=== PATIENT | female | born 1990 | race Caucasian/White ===

== ENCOUNTER 2020-08-25 08:00 | Outpatient (CLI) | payer OTHER ==
[2020-08-26 13:35] LABS: BILIRUBIN,URINE NEGATIVE (NEGATIVE); GLUCOSE, URINE (UA) NEGATIVE (NEGATIVE); KETONES,URINE (UA) NEGATIVE (NEGATIVE); LEUKOCYTE ESTERASE, URINE NEGATIVE (NEGATIVE); NITRITE,URINE NEGATIVE (NEGATIVE); OCCULT BLOOD,URINE NEGATIVE (NEGATIVE); PROTEIN,URINE NEGATIVE (NEGATIVE); UROBILINOGEN,URINE 0.2 (NORMAL) E.U./dL (NORMAL)
[2020-08-26 13:46] LABS: BACTERIA,URINE Many /HPF (None Seen); CLARITY,URINE CLEAR (CLEAR); RBC,URINE None Seen /HPF (0-5); SQUAMOUS EPITHELIAL CELL,UR MANY Squamous (<= Few)
== END 2020-08-25 23:59 | disposition home or self-care (01) ==
LOC: LAB.R 08:00
PROVIDERS: ATTEND Advanced Practice Midwife
DX: Z32.01 Encounter for pregnancy test, result positive (principal)
CPT/HCPCS: 81001; 87086

== ENCOUNTER 2020-09-07 07:52 | Outpatient (CLI) | payer OTHER ==
[2020-09-07 09:16] LABS: BASOPHILS % (AUTO) 0.5 %; EOSINOPHILS % (AUTO) 0.7 %; HCT - HEMATOCRIT 40.7 % (37.0-47.0); HGB - HEMOGLOBIN 13.5 g/dL (12.0-16.0); LYMPHOCYTES # (AUTO) 1.5 10^3/uL (1.5-3.5); LYMPHOCYTES % (AUTO) 25.5 %; MEAN CORPUSCULAR HEMOGLOBIN 33.3 pg (27.0-31.0); MEAN CORPUSCULAR HGB CONC 33.2 g/dL (32.0-36.0); MEAN CORPUSCULAR VOLUME 100.2 fL (81.0-99.0); MEAN PLATELET VOLUME 12.5 fL (7.9-10.8); MONOCYTES # (AUTO) 0.4 10^3/uL (0.0-1.0); MONOCYTES % (AUTO) 6.6 %; NEUTROPHILS # (AUTO) 3.9 10^3/uL (1.5-6.6); NEUTROPHILS % (AUTO) 66.4 %; PLT - PLATELET COUNT 206 10^3/uL (130-450); RED BLOOD COUNT 4.06 10^6/uL (4.20-5.40); RED CELL DISTRIBUTION WIDTH 12.7 % (12.0-15.0); WHITE BLOOD COUNT 5.9 x10^3/uL (4.8-10.8)
--- NOTE | 2020-09-07 09:53 | Ultrasound Report ---
PROCEDURE: OB First Trimester INDICATIONS: +PREG TEST OUTSIDE/PRIOR DATING DATA: Last menstrual period (LMP): Unknown. First dating scan (date and location): Today. [facility] Estimated date of delivery (KAIDEN) from first dating scan: 04/06/2021. TECHNIQUE: Real-time scanning was performed of the fetus and maternal pelvic organs, with image documentation. COMPARISON: None FINDINGS: There is a single living intrauterine gestation with heart rate of 165 bpm. There is a small pe rigestational hemorrhage encompassing less than 25% of the gestational sac. Embryo: Gestational sac measures mean sac diameter of 6.0 cm corresponding to 12 weeks 1 day. Rainelle- rump length is 3.0 cm corresponding to 9 weeks 6 days. There is a yolk sac. Measurement variability in dating: +/- 4 weeks by LMP, +/- 7 days by mean sac diameter (use before 6 weeks gestation if crown-rump length not able to be measured), +/- 5 days by crown-rump length (6-12 weeks gestation). Maternal organs: Ovaries are normal in size. Within the right ovary is a anechoic cyst with a thick wall measuring 1.3 cm in greatest diameter consistent with a corpus luteal cyst. No suspicious cystic or solid masses. No free fluid. IMPRESSION: Single intrauterine gestation with heart rate of 165 bpm. Rainelle-rump length corresponding to 9 weeks 6 days with estimated date of delivery of 04/06/2021. Small perigestational hemorrhage encompassing less than 25% of the gestational sac, a common finding. Reviewed by: Leodan Arenas DO on 09/07/2020 8:52 AM ARIANNE Approved by: Leodan Arenas DO on 09/07/2020 8:52 AM [place] Station ID: [id number]
[2020-09-09 11:47] LABS: HEPATITIS B SURFACE ANTIGEN NON-REACTIVE (NON-REACTIVE); HEPATITIS C ANTIBODY NON-REACTIVE (NON-REACTIVE)
[2020-09-09 14:22] LABS: HIV AG/AB 4TH GEN NON-REACTIVE (NON-REACTIVE)
== END 2020-09-07 07:53 | disposition home or self-care (01) ==
LOC: DI 07:52
PROVIDERS: ATTEND Nurse Practitioner Obstetrics & Gynecology
DX: Z32.01 Encounter for pregnancy test, result positive (principal); O20.8 Other hemorrhage in early pregnancy; Z3A.09 9 weeks gestation of pregnancy
CPT/HCPCS: 36415; 81599; 85025; 86592; 86762; 86787; 86803; 86850; 86900; 86901; 87340; 87389

== ENCOUNTER 2020-09-08 08:00 | Outpatient (CLI) | payer OTHER ==
[2020-09-08 17:03] LABS: BASOPHILS % (AUTO) 0.5 %; EOSINOPHILS % (AUTO) 0.2 %; HGB - HEMOGLOBIN 12.8 g/dL (12.0-16.0); LYMPHOCYTES # (AUTO) 1.9 10^3/uL (1.5-3.5); LYMPHOCYTES % (AUTO) 23.3 %; MEAN CORPUSCULAR HEMOGLOBIN 33.1 pg (27.0-31.0); MEAN CORPUSCULAR HGB CONC 33.2 g/dL (32.0-36.0); MEAN CORPUSCULAR VOLUME 99.5 fL (81.0-99.0); MEAN PLATELET VOLUME 12.1 fL (7.9-10.8); MONOCYTES # (AUTO) 0.5 10^3/uL (0.0-1.0); MONOCYTES % (AUTO) 5.9 %; NEUTROPHILS # (AUTO) 5.8 10^3/uL (1.5-6.6); NEUTROPHILS % (AUTO) 69.7 %; PLT - PLATELET COUNT 204 10^3/uL (130-450); RED BLOOD COUNT 3.87 10^6/uL (4.20-5.40); RED CELL DISTRIBUTION WIDTH 12.8 % (12.0-15.0); WHITE BLOOD COUNT 8.3 x10^3/uL (4.8-10.8)
[2020-09-08 18:00] LABS: FOLATE 22.83 ng/mL (5.90 - >24.8)
== END 2020-09-08 23:59 | disposition home or self-care (01) ==
LOC: LAB 08:00
PROVIDERS: ATTEND Advanced Practice Midwife
DX: R79.89 Other specified abnormal findings of blood chemistry (principal)
CPT/HCPCS: 36415; 81599; 82607; 82746; 83021; 85014; 85018; 85025; 85041

== ENCOUNTER 2020-09-22 08:00 | Outpatient (CLI) | payer OTHER ==
[2020-09-22 21:52] LABS: TRICHOMONAS VAGINALIS DNA NEGATIVE (NEGATIVE)
== END 2020-09-22 23:59 | disposition home or self-care (01) ==
LOC: LAB.R 08:00
PROVIDERS: ATTEND Nurse Practitioner Obstetrics & Gynecology
DX: Z11.3 Encounter for screening for infections with a predominantly sexual mode of transmission (principal); Z12.4 Encounter for screening for malignant neoplasm of cervix
CPT/HCPCS: 87491; 87591; 87661

== ENCOUNTER 2020-09-30 09:48 | Outpatient (CLI) | payer OTHER | END 2020-09-30 09:49 | disposition home or self-care (01) | LOC: LAB 09:48 | PROVIDERS: ATTEND Nurse Practitioner Obstetrics & Gynecology | DX: Z36.8A Encounter for antenatal screening for other genetic defects (principal); Z84.81 Family history of carrier of genetic disease | CPT/HCPCS: 36415; 81291; 81599 ==

== ENCOUNTER 2020-10-21 13:35 | Outpatient (CLI) | payer OTHER ==
[2020-10-21 14:38] LABS: THYROID STIMULATING HORMONE 1.33 uIU/mL (0.34-5.60)
[2020-10-21 14:41] LABS: FREE T4 (FREE THYROXINE) 0.57 ng/dL (0.58-1.64)
== END 2020-10-21 13:36 | disposition home or self-care (01) ==
LOC: LAB 13:35
PROVIDERS: ATTEND Nurse Practitioner Obstetrics & Gynecology
DX: Z36.89 Encounter for other specified antenatal screening (principal); O99.891 Other specified diseases and conditions complicating pregnancy; R94.6 Abnormal results of thyroid function studies; Z36.8A Encounter for antenatal screening for other genetic defects; Z14.8 Genetic carrier of other disease
CPT/HCPCS: 36415; 81599; 82105; 84439; 84443; 86800

== ENCOUNTER 2020-11-03 14:22 | Outpatient (CLI) | payer OTHER | END 2020-11-03 14:23 | disposition home or self-care (01) | LOC: LAB.N 14:22 | PROVIDERS: ATTEND Nurse Practitioner Obstetrics & Gynecology | DX: Z36.8A Encounter for antenatal screening for other genetic defects (principal) | CPT/HCPCS: 36415; 81599; 82306; 82652; 83789; 84630 ==

== ENCOUNTER 2020-11-20 19:47 | Outpatient (CLI) | payer OTHER ==
--- NOTE | 2020-11-21 14:17 | Ultrasound Report ---
PROCEDURE: OB Detailed Eval INDICATIONS: SUPERVISION OF OUTSIDE/PRIOR DATING DATA: Last menstrual period (LMP): Unknown. LMP-based estimated date of delivery (KAIDEN): Not applicable. First dating scan (date and location): 09/07/2020. Estimated date of delivery (KAIDEN) from first dating scan: 04/06/2021. TECHNIQUE: Real-time scanning was performed of the fetus, with image documentation and biometric measurements. Endovaginal scanning: Not performed COMPARISON: 09/07/2020 FINDINGS: General: A single living intrauterine gestation is present. Presentation: Breech Placenta: Placental position is anterior, without previa. Amniotic fluid index: 16.8 cm, 73rd percentile for gestational age. Largest vertical pocket measur ed 7 cm heart rate: 149 beats per minute. Maternal cervical canal: 4.5 cm long; normal length is 2.5 cm or more. biometrics: Biparietal diameter: 4.8 cm, correlating with 20 weeks and 4 days Head circumference: 18.6 cm, correlating with 21 weeks and 0 days Abdominal circumference: 16.55 cm, correlating with 21 weeks and 4 days Femur length: 3.28 cm, correlating with 20 weeks and 2 days Estimated gestational age from initial scan: not applicable. Composite gestational age from present scan: 20 weeks and 5 days Estimated weight and percentile: 389 g which [address] the fetus within the 75th percentile based off gestational age. Measurement variability in biometric dating: +/- 10 days from 12-20 weeks gestation, +/- 2 weeks from 20-30 weeks gestation, +/- 3 weeks at 30 weeks gestation or later. Anatomic survey: Neuro: Ventricles are normal at less than 10 mm. Cisterna magna is normal at 3-11 mm. Cerebellum i s normal in size and morphology. Nuchal skin fold: Normal at less than 6 mm between 14 and 20 weeks gestational age. Face: Nose and lips, facial profile are normal. Spine: No evidence for spina bifida. Of note, the sagittal imaging of the spine was somewhat limited secondary to positioning throughout the examination. Overall this appears within normal limits . Heart: 4-chambered heart is present, with normal ventricular outflow tracts. Diaphragm: Diaphragm is intact. Stomach: Left-sided stomach is present. Kidneys: No hydronephrosis. Normal is less than 5 mm in 2nd trimester, less than 7 mm in 3rd trimester. Cord: 3 vessel cord has orthotopic insertion. Bladder: Normal in size. Extremities: All 4 extremities are visualized. IMPRESSION: 1. Single living intrauterine gestation with estimated sonographic gestational age of approximately 2 0 weeks and 5 days. This correlates with estimated date of delivery of 04/06/2021. Estimated weig ht measured approximately 389 g which places the fetus within the 75th percentile for gestational age . 2. Slightly limited evaluation of the spine secondary to positioning throughout the durat ion of this evaluation. Consider follow-up imaging. 3. Otherwise, unremarkable second trimester anatomic screening survey. Reviewed by: Abdiel Alonzo MD on 11/21/2020 1:16 PM SHIN Approved by: Abdiel Alonzo MD on 11/21/2020 1:16 PM SHIN Station ID: [id number]
== END 2020-11-20 19:48 | disposition home or self-care (01) ==
LOC: DI 19:47
PROVIDERS: ATTEND Nurse Practitioner Obstetrics & Gynecology
DX: Z34.00 Encounter for supervision of normal first pregnancy, unspecified trimester (principal); Z36.89 Encounter for other specified antenatal screening

== ENCOUNTER 2021-01-02 19:31 | Outpatient (CLI) | payer OTHER ==
[2021-01-02 20:55] LABS: HCT - HEMATOCRIT 36.9 % (37.0-47.0); HGB - HEMOGLOBIN 12.5 g/dL (12.0-16.0); MEAN CORPUSCULAR HEMOGLOBIN 34.6 pg (27.0-31.0); MEAN CORPUSCULAR HGB CONC 33.9 g/dL (32.0-36.0); MEAN CORPUSCULAR VOLUME 102.2 fL (81.0-99.0); MEAN PLATELET VOLUME 12.3 fL (7.9-10.8); RED BLOOD COUNT 3.61 10^6/uL (4.20-5.40); RED CELL DISTRIBUTION WIDTH 12.6 % (12.0-15.0); WHITE BLOOD COUNT 7.4 x10^3/uL (4.8-10.8)
[2021-01-02 21:17] LABS: THYROID STIMULATING HORMONE 1.77 uIU/mL (0.34-5.60)
[2021-01-02 21:19] LABS: FREE T4 (FREE THYROXINE) 0.64 ng/dL (0.58-1.64)
--- NOTE | 2021-01-02 22:22 | Ultrasound Report ---
PROCEDURE: Axilla INDICATIONS: Axillary lymphadenopathy TECHNIQUE: Real-time focused scanning was performed of the left axilla, with image documentation. COMPARISON: None. FINDINGS: There is no threshold enlarged or suspicious-appearing left axillary lymph node identified . There is a normal left axillary lymph node with a short axis diameter of 7 mm and no cortical thick ening with preserved fatty hilum. IMPRESSION: No left axillary lymphadenopathy demonstrated. Reviewed by: Rebel Armando MD on 01/02/2021 10:20 PM PDT Approved by: Rebel Armando MD on 01/02/2021 10:20 PM PDT Station ID: [id number]
--- NOTE | 2021-01-02 22:25 | Ultrasound Report ---
PROCEDURE: OB F/U or Repeat INDICATIONS: SUPERVISION OF OUTSIDE/PRIOR DATING DATA: First dating scan (date and location): 09/07/2020. Estimated date of delivery (KAIDEN) from first dating scan: 04/06/2021. The below data below was generated using the ultrasound generated KAIDEN of 04/06/2021 TECHNIQUE: Real-time scanning was performed of the fetus, with image documentation and biometric measurements. Endovaginal scanning: Performed COMPARISON: None. FINDINGS: General: A single living intrauterine gestation is present. Presentation: Breech Placenta: Placental position is anterior, without previa. Amniotic fluid index: 13.1 cm, 40th percentile for gestational age. Largest pocket is 6 cm heart rate: 141 beats per minute. Maternal cervical canal: Closed and greater than 4 cm long; normal length is 2.5 cm or more. anatomy: Limited anatomic survey was performed to evaluate the spine. There is no evidenc e of dysraphism. IMPRESSION: Normal appearance of the spine with no sonographic evidence of dysraphism. Single live intrauterine gestation with normal interval growth and normal DAMIEN. Reviewed by: Rebel Armando MD on 01/02/2021 10:24 PM PDT Approved by: Rebel Armando MD on 01/02/2021 10:24 PM PDT Station ID: [id number]
== END 2021-01-02 19:32 | disposition home or self-care (01) ==
LOC: DI 19:31 → LAB 19:32
PROVIDERS: ATTEND Nurse Practitioner Obstetrics & Gynecology
DX: Z34.00 Encounter for supervision of normal first pregnancy, unspecified trimester (principal); Z36.89 Encounter for other specified antenatal screening; Z36.8A Encounter for antenatal screening for other genetic defects
CPT/HCPCS: 36415; 82950; 84439; 84443; 85025; 85027

== ENCOUNTER 2021-03-09 08:00 | Outpatient (CLI) | payer OTHER | END 2021-03-09 23:59 | disposition home or self-care (01) | LOC: LAB.WC 08:00 | PROVIDERS: ATTEND Advanced Practice Midwife | DX: Z34.90 Encounter for supervision of normal pregnancy, unspecified, unspecified trimester (principal); Z36.85 Encounter for antenatal screening for Streptococcus B | CPT/HCPCS: 87797 ==

== ENCOUNTER 2021-03-09 12:34 | Outpatient (CLI) | payer OTHER ==
[2021-03-09 13:00] VITALS: BP 110/76
--- NOTE | 2021-03-12 08:45 | PROCEDURE REPORT ---
- HPI Diagnosis/Indication for NST: Other ( Tachycardia in clinic) Current EDU 04/06/21 Gestation 36 Weeks and 0 Days 2 Para 1 Vital Signs Temperature 97.9 C H 03/09/21 12:58 Heart Rate 98 03/09/21 12:58 Respiratory Rate 18 03/09/21 12:58 Blood Pressure 110/76 03/09/21 12:58 O2 Saturation 97 03/09/21 12:58 Temperature 97.9 C H 03/09/21 12:58 Heart Rate 98 03/09/21 12:58 Respiratory Rate 18 03/09/21 12:58 Blood Pressure 110/76 03/09/21 12:58 O2 Saturation 97 03/09/21 12:58 - NST Procedure NST Procedure Start Date 03/09/21 Start Time 12:45 Stop Time 14:15 Vibroacoustic Stimulation Used No Patient States Movement Yes: tachycardia in office - Results and Plan Plan: Candida is a 30 yo at 36.0 wks who was present for a regular visit. Upon auscultation, heart tones were found to be in the 170s and persisted through the visit. She was then encouraged to present to L&D for an NST NST perform date: 03/09/2021 NST read date: 03/09/2021 Baseline 145, moderate variability, accels, no decels Baseline was high on admit and resolved. Pt was given significant oral hydration Impression: NST reactive Final diagnosis: tachycardia- transient Plan: Continue with routine care
== END 2021-03-09 14:25 | disposition home or self-care (01) ==
LOC: WFO 12:34 → FBP 12:35 → WFO 14:25
PROVIDERS: ATTEND Advanced Practice Midwife
DX: O36.8330 Maternal care for abnormalities of the fetal heart rate or rhythm, third trimester, not applicable or unspecified (principal); Z3A.36 36 weeks gestation of pregnancy
CPT/HCPCS: 59025

== ENCOUNTER 2021-04-09 17:08 | Inpatient (IN) | payer OTHER ==
[2021-04-09] MEDS ORDERED: SODIUM CHLORIDE FLUSH 0.9% 10 ML SYRINGE IVP PRN (17:41)
[2021-04-09] MEDS ORDERED: CARBOPROST TROMETHAMINE 250 MCG/ML AMP IM PRN (17:41)
[2021-04-09] MEDS ORDERED: METHYLERGONOVINE 0.2 MG/ML VIAL IM PRN (17:41)
[2021-04-09] MEDS ORDERED: AMPICILLIN 2 GM in SODIUM CHLORIDE 0.9% MINIBAG 100 ML IV ONE (17:41)
[2021-04-09] MEDS ORDERED: OXYTOCIN/SODIUM CHLORIDE 500 ML IV PRN ×2 (17:41→20:02)
[2021-04-09] MEDS ORDERED: LIDOCAINE-MPF 1% 30 ML VIAL ID PRN (17:41)
[2021-04-09] MEDS ORDERED: miSOPROStoL 200 MCG TABLET BC PRN (17:41)
[2021-04-09] MEDS ORDERED: OXYTOCIN 10 UNIT/ML VIAL IM PRN (17:41)
[2021-04-09] MEDS ORDERED: TRANEXAMIC ACID IN NACL 1,000 MG/100 ML BAG IV PRN (17:41)
[2021-04-09] MEDS ORDERED: LACTATED RINGERS 1,000 ML IV SCH ×2 (18:00→21:00)
[2021-04-09] MEDS ORDERED: AMPICILLIN 1 GM in SODIUM CHLORIDE 0.9% MINIBAG 100 ML IV SCH (18:00)
[2021-04-09 19:01] LABS: HCT - HEMATOCRIT 41.6 % (37.0-47.0); HGB - HEMOGLOBIN 13.8 g/dL (12.0-16.0); MEAN CORPUSCULAR VOLUME 103.5 fL (81.0-99.0); RED BLOOD COUNT 4.02 10^6/uL (4.20-5.40); WHITE BLOOD COUNT 8.2 x10^3/uL (4.8-10.8)
[2021-04-09 19:02] LABS: MEAN CORPUSCULAR HEMOGLOBIN 34.3 pg (27.0-31.0); MEAN CORPUSCULAR HGB CONC 33.2 g/dL (32.0-36.0); PLT - PLATELET COUNT 187 10^3/uL (130-450); RED CELL DISTRIBUTION WIDTH 48.1 % (12.0-15.0)
[2021-04-09] MEDS ORDERED: ROPIVACAINE 0.2% 200 MG/100 ML BAG EP ONE (19:02)
[2021-04-09 19:03] LABS: LYMPHOCYTES % (AUTO) 24.4 %; MEAN PLATELET VOLUME 12.6 fL (7.9-10.8); NEUTROPHILS % (AUTO) 67.6 %
[2021-04-09 19:04] LABS: BASOPHILS % (AUTO) 0.4 %; EOSINOPHILS % (AUTO) 0.5 %; MONOCYTES # (AUTO) 0.6 10^3/uL (0.0-1.0); NEUTROPHILS # (AUTO) 5.6 10^3/uL (1.5-6.6)
[2021-04-09] MEDS ORDERED: ONDANSETRON 4 MG/2 ML VIAL IVP PRN (19:29)
[2021-04-09] MEDS ORDERED: ROPIVACAINE 0.2% 200 MG/100 ML BAG EP PRN (19:29)
[2021-04-09] MEDS ORDERED: NALBUPHINE 10 MG/ML AMP IVP PRN (19:29)
[2021-04-09] MEDS ORDERED: METOCLOPRAMIDE 10 MG/2 ML VIAL IVP PRN (19:29)
[2021-04-09] MEDS ORDERED: diphenhydrAMINE INJ 50 MG/ML VIAL IVP PRN (19:29)
[2021-04-09] MEDS ORDERED: NALOXONE 0.4 MG/ML VIAL IVP PRN (19:29)
[2021-04-09] MEDS ORDERED: ePHEDrine 50 MG/ML VIAL IVP PRN (19:29)
[2021-04-09] MEDS ORDERED: WITCH HAZEL/GLYCERIN 1 PAD TOP PRN (20:02)
[2021-04-09] MEDS ORDERED: HYDROCORTISONE 1% CREAM 28 GM TUBE PR PRN (20:02)
--- NOTE | 2021-04-09 21:37 | PROVIDER PROGRESS NOTE ---
Assessment/Plan - Current Meds Current Meds: Current Medications Generic Name Dose Route Start Last Admin Trade Name Tarik PRN Reason Stop Dose Admin Ampicillin Sodium 2 gm/ Sodium 100 mls @ 100 mls/hr 04/09/21 17:41 04/09/21 17:50 Chloride IV 04/09/21 18:40 100 mls/hr ONCE ONE Administration - Additional Planning My Orders: My Active Orders 04/09/21 Breakfast Regular Diet [DIET] 04/09/21 17:15 Notify Provider - Specific Ins [RC] PRN OB Non Stress Test [RC] .ONCE OB OP Discharge Criteria [RC] ONCE Outpatient Status - Family Birthplace [OTHERS] Routine 04/09/21 17:41 Ampicillin [Ampicillin Sodium] 2 gm Sodium Chloride 0.9% Minibag [Normal Saline 0.9% Minibag] 100 ml IV ONCE Carboprost Tromethamine [Hemabate] 250 mcg IM Q15M PRN Lidocaine HCl/Pf [Xylocaine-Mpf 1% Vial] 30 ml ID .ONCE PRN Methylergonovine Inj [Methergine Inj] 0.2 mg IM .ONCE PRN Oxytocin [Pitocin] 10 unit IM .ONCE PRN Oxytocin/Sodium Chloride [Pitocin/Sodium Chloride] 500 ml IV PRN Sodium Chloride Flush 0.9% [Normal Saline Flush 0.9%] 10 ml IVP PRN PRN Tranexamic Acid in NaCl [Tranexamic 1,000 mg/100Ml-NaCl] 1,000 mg in 100 ml IV .ONCE miSOPROStoL [Cytotec] 800 mcg BC .ONCE PRN 04/09/21 17:44 Activity During Labor [RC] QSHIFT Electronic Monitoring - [RC] CONT Hemorrhage Pack [RC] PRN IO [RC] Q4H Initiate Line Care Protocol [RC] .protocol Labor epidural if pt desires [RC] PRN Vital Signs - OB [RC] Q2HR CBC - COMP BLD CT W/AUTO DIFF [HEME] Routine TYPE AND SCREEN Routine Code Status [OTHERS] Routine Condition of Patient [OTHERS] Routine DVT Prophylaxis [OTHERS] Routine 04/09/21 18:00 Ampicillin 1 gm Sodium Chloride 0.9% Minibag [Normal Saline 0.9% Minibag] 100 ml IV Q4H Lactated Ringers [Lr] 1,000 ml IV 150 mls/hr 04/09/21 18:17 OB Triage per Protocol [RC] .ONCE Vital Signs - OB [RC] .PER PROTOCOL 04/10/21 01:00 Sodium Chloride Flush 0.9% [Normal Saline Flush 0.9%] 10 ml IVP 0100,0900,1700 04/10/21 Breakfast Regular Diet [DIET] Subjective - Subjective Patient Reports: Other (Patient is feeling stronger contractions.) Objective Vital Signs: Vital Signs - 24 hr 04/09/21 18:06 Temperature 99.0 F Heart Rate 72 Respiratory 18 Rate Blood Pressure 122/85 H Comments/Notes: CX is 7/90/0/bulging bag of membranes. Monitor is still category I A-IUP 40 10/05, Active labor P- Patient requesting epidural.
--- NOTE | 2021-04-09 21:37 | HISTORY & PHYSICAL EXAMINATION ---
Admit History - Visit Reason Visit Reason: Contractions - : 2 Parity: 1 Premature: 0 Ectopic: 0 : 0 Care: positive: None ([facility].) Risk/History: positive: None Complications This : positive: None Smoking Status: Never smoker - Mother's Labs Mother's Blood Type: positive: O Mother's RH: positive: Positive GBS: positive: Group B Strep Positive Rubella Status: positive: Immune Meds/Allgy - Allergies Allergies/Adverse Reactions: Allergies Allergy/AdvReac Type Severity Reaction Status Date / Time No Known Drug Allergies Allergy Verified 04/09/21 18:00 Review of Systems - Constitutional Constitutional: denies: Fatigue - Cardiovascular Cariovascular: denies: Irregular heart rate, Palpitations, Chest pain - Gastrointestinal Gastrointestinal: denies: Abdominal pain - Genitourinary Genitourinary: denies: Dysuria, Frequency - Neurological Neurological: denies: General weakness Physical - Abdominal Exam Vital Signs: Temp Pulse Resp BP Pulse Ox 99.0 F 72 18 122/85 H 04/09/21 18:06 04/09/21 18:06 04/09/21 18:06 04/09/21 18:06 Contraction Frequency (min/apart): 2-3 Contraction Intensity: positive: Moderate Uterine Resting Tone: positive: Soft - Monitoring Heart Rate Baseline: 130 Strip Review: positive: Category I - Presentation Presentation: positive: Vertex - Vaginal Exam Membranes: positive: Membranes intact Dilation (in cm): 4-5 Effacement (%): 50 Station: positive: -3 Cervical Position: positive: Midposition - Speculum Exam Speculum Exam Performed: positive: No - Other Notes Labor Progress Note/Additional Text: 30 yo at 40 3/7 presented with contractions. Patient denies SROM. Patient denies vaginal bleeding. Patient reports good movement.
--- NOTE | 2021-04-09 21:37 | DELIVERY NOTE ---
Delivery Note - Labor Labor: positive: Spontaneous - Delivery Method Delivery Method: positive: Spontaneous vaginal delivery - Presentation Presentation: positive: Vertex, JEREMY - right occiput anterior - Nuchal Cord Nuchal Cord: positive: Present, Reduced - Anesthetic Anesthetic Type: - Amniotic Fluid Description Amniotic Fluid Description: positive: Light meconium - Episiotomy Type Episiotomy Type: positive: None - Laceration Laceration: positive: None - Delivery Outcome Delivery Outcome: positive: Livebirth - Castell Castell: positive: Placed in direct skin contact with mother Castell sex: positive: Female - Cord Cord: positive: 3 vessels - Placenta Placenta: positive: Intact, Spontaneous - Estimated Blood Loss Estimated Blood Loss (in cc): 50 - Post Delivery Events Post Delivery Events: positive: No post delivery events - Delivery Comments (Free Text/Narrative) Delivery Comments (Free Text/Narrative): 30yo at 40 3/7 weeks presented in active labor. Patient had been transferred in December with [facility]. Patient received care with Oanh Kyle CNM. Patient had epidural anesthesia placed at 7-8 cm. Patient was GBS positive and Ampicillin was started immediately upon admission. Patient was placed in the supine position after epidural was complete and she was found to be complete and 2+ station. SROM occurred during this exam and light meconium was present. [employer] was called. Patient pushed for less than 15 minutes. over intact perineum with head in JEREMY position. Nuchal cord times one was reduced over infant's head. Spontaneous delivery of posterior hand, then anterior shoulder came on their own. The remainder of delivered spontaneously. was crying and placed on mother's abdomen. Living female with Apgars of 8/9. Pitocin was started in IV after delivery of infant. Delayed cord clamping for two minutes, then cord clamped times two and cut. Cord blood obtained for lab. Placenta delivered spontaneously, intact, ALEC. Cervix inspected and found to be intact. No lacerations or tears. Some bruising present along left vaginal sulcus. EBL is 50cc. Mother and are doing well. Sponge, needle and instrument counts were correct.
--- NOTE | 2021-04-09 21:37 | ANESTHESIA ---
Pre-Anesthesia VS, & Labs - Diagnosis term labor, IUP - Procedure epidural Vital Signs: Temp Pulse Resp BP Pulse Ox 37.2 C 72 18 122/85 H 04/09/21 18:06 04/09/21 18:06 04/09/21 18:06 04/09/21 18:06 Height: 5 ft 7 in Weight (kg): 81.193 kg Body Mass Index: 28.0 BMI Classification: Overweight - NPO Last Fluid Intake: t/o day Last Food Intake: full lunch - Is Patient ?: Yes - Lab Results Current Lab Results: Laboratory Tests 04/09/21 18:48: WBC 8.2, RBC 4.02 L, Hgb 13.8, Hct 41.6, MCV 103.5 H, MCH 34.3 H , MCHC 33.2, RDW 48.1 H, Plt Count 187, MPV 12.6 H, Neut # (Auto) 5.6, Lymph # (Auto) 2.0, [place] # (Auto) 0.6, Eos # (Auto) 0.0, Baso # (Auto) 0.0, Absolute Nucleated RBC 0.00, Nucleated RBC % 0.0 Lab results reviewed: Yes Fish Bones: 04/09/21 18:48 Home Medications and Allergies Active Medications Carboprost Tromethamine (Carboprost Tromethamine 250 Mcg/Ml Amp) 250 mcg IM Q15M PRN PRN Reason: Step 4: Hemorrhage protocol Stop: 04/14/21 17:44 Oxytocin/Sodium Chloride (Pitocin/Sodium Chloride) 500 mls @ 999 mls/hr IV PRN PRN; Protocol PRN Reason: POST- HEMORR PREVENTION Stop: 04/14/21 17:44 Tranexamic Acid (Tranexamic 1,000 Mg/100ml-Nacl) 1,000 mg in 100 mls @ 600 mls/hr IV .ONCE PRN PRN Reason: EBL >1200mL and within 3hr Stop: 04/14/21 17:44 Ampicillin Sodium 1 gm/ Sodium (Chloride) 100 mls @ 200 mls/hr IV Q4H FRANSISCO Lactated Ringer's (Lr) 1,000 mls @ 150 mls/hr IV .Q6H40M FRANSISCO Lidocaine HCl (Lidocaine-Mpf 1% 30 Ml Vial) 30 ml ID .ONCE PRN PRN Reason: PERINEAL REPAIR Stop: 04/14/21 17:44 Methylergonovine Maleate (Methylergonovine 0.2 Mg/Ml Vial) 0.2 mg IM .ONCE PRN PRN Reason: Step 2: Hemorrhage protocol Stop: 04/14/21 17:44 Misoprostol (Misoprostol 200 Mcg Tablet) 800 mcg BC .ONCE PRN PRN Reason: Step 3: Hemorrhage protocol Stop: 04/14/21 17:44 Oxytocin (Oxytocin 10 Unit/Ml Vial) 10 unit IM .ONCE PRN PRN Reason: Step one: If no IV access Stop: 04/14/21 17:44 Sodium Chloride (Sodium Chloride Flush 0.9% 10 Ml Syringe) 10 ml IVP PRN PRN PRN Reason: NEEDED PER PROVIDER ORDERS Sodium Chloride (Sodium Chloride Flush 0.9% 10 Ml Syringe) 10 ml IVP 0100,0900,1700 FRANSISCO Allergies/Adverse Reactions: Allergies Allergy/AdvReac Type Severity Reaction Status Date / Time No Known Drug Allergies Allergy Verified 04/09/21 18:00 Anes History & Medical History - Anesthetic History Anesthesia Complications: reports: No previous complications Family history of Anesthesia Complications: Denies Family history of Malignant Hyperthermia: Denies - Medical History Cardiovascular: reports: None Smoking Status: Never smoker - Obstetrical History : 2 Parity: 1 Events: reports: None Complications: reports: None Exam General: Alert, Oriented x3, Cooperative Dental: WNL Neck Mobility: Normal Mallampati classification: II Respiratory: No respiratory distress Cardiovascular: Regular rate Mental/Cognitive Status: Alert/Oriented X3, Normal for patient Plan Anesthesia Type: Epidural Consent for Procedure(s) Verified and Reviewed: Yes Code Status: Attempt Resuscitation ASA classification: 2-Mild systemic disease Is this case an emergency?: No
[2021-04-09] MEDS: ACETAMINOPHEN 500 MG TABLET PO SCH (22:00)
[2021-04-09] MEDS: DOCUSATE SODIUM 100 MG CAPSULE PO SCH (22:00)
[2021-04-09] MEDS: IBUPROFEN 600 MG TABLET PO SCH (23:36)
[2021-04-10] MEDS ORDERED: SODIUM CHLORIDE FLUSH 0.9% 10 ML SYRINGE IVP SCH (01:00)
[2021-04-10 07:27] LABS: BASOPHILS % (AUTO) 0.3 %; EOSINOPHILS # (AUTO) 0.1 10^3/uL (0.0-0.7); EOSINOPHILS % (AUTO) 0.8 %; HCT - HEMATOCRIT 37.8 % (37.0-47.0); HGB - HEMOGLOBIN 12.8 g/dL (12.0-16.0); LYMPHOCYTES # (AUTO) 1.5 10^3/uL (1.5-3.5); LYMPHOCYTES % (AUTO) 16.7 %; MEAN CORPUSCULAR HEMOGLOBIN 34.1 pg (27.0-31.0); MEAN CORPUSCULAR HGB CONC 33.9 g/dL (32.0-36.0); MEAN CORPUSCULAR VOLUME 100.8 fL (81.0-99.0); MEAN PLATELET VOLUME 12.9 fL (7.9-10.8); MONOCYTES # (AUTO) 0.6 10^3/uL (0.0-1.0); NEUTROPHILS # (AUTO) 6.9 10^3/uL (1.5-6.6); NEUTROPHILS % (AUTO) 74.9 %; PLT - PLATELET COUNT 162 10^3/uL (130-450); RED BLOOD COUNT 3.75 10^6/uL (4.20-5.40); RED CELL DISTRIBUTION WIDTH 12.5 % (12.0-15.0); WHITE BLOOD COUNT 9.2 x10^3/uL (4.8-10.8)
[2021-04-10] MEDS: IBUPROFEN 600 MG TABLET PO SCH ×3 (08:31→17:54)
[2021-04-10] MEDS: ACETAMINOPHEN 500 MG TABLET PO SCH ×2 (10:33→17:53)
[2021-04-10] MEDS: DOCUSATE SODIUM 100 MG CAPSULE PO SCH (10:34)
--- NOTE | 2021-04-10 13:32 | PROVIDER PROGRESS NOTE ---
Subjective - Prog Note Date Prog Note Date: 04/10/21 Prog Note Time: 13:16 - Subjective Pt reports feeling: Improved (Patient is doing well. Patient is urinating, ambulating and tolerating a regular diet. Patient is breast feeding. Patient states she is not having any pain.) Objective - Vital Signs/Intake & Output Reviewed Vital Signs: Yes Vital Signs: Vital Signs x48h Temp Pulse Resp BP Pulse Ox 04/10/21 13:16 97.9 F 68 16 115/67 98 04/10/21 10:00 126/76 04/10/21 08:00 98.1 F 73 16 137/89 H 98 Intake & Output: Intake & Output 04/07/21 04/08/21 04/09/21 04/10/21 23:59 23:59 23:59 23:59 Intake Total 1428.75 800 Output Total 600 450 Balance 828.75 350 - Objective General Appearance: positive: No acute distress Respiratory: positive: Breath sounds nml. negative: Wheezes, Rales, Rhonchi Cardiovascular: positive: Regular rate & rhythm, No murmur, No gallop Abdomen: positive: Non-tender, Nml bowel sounds, Other (Fundus is firm and below the umbilicus.) Skin: positive: Color nml Extremities: positive: No pedal edema. negative: Calf tenderness Neurologic/Psychiatric: positive: Oriented x3, Mood/affect nml - Lab Results Fish Bones: 04/10/21 07:06 Other Labs: Lab Results x24hrs 04/10/21 04/09/21 04/09/21 Range/Units 07:06 18:48 18:48 WBC 9.2 8.2 (4.8-10.8) x10^3/uL RBC 3.75 L 4.02 L (4.20-5.40) 10^6/uL Hgb 12.8 13.8 (12.0-16.0) g/dL Hct 37.8 41.6 (37.0-47.0) % MCV 100.8 H 103.5 H (81.0-99.0) fL MCH 34.1 H 34.3 H (27.0-31.0) pg MCHC 33.9 33.2 (32.0-36.0) g/dL RDW 12.5 48.1 H (12.0-15.0) % Plt Count 162 187 (130-450) 10^3/uL MPV 12.9 H 12.6 H (7.9-10.8) fL Neut # (Auto) 6.9 H 5.6 (1.5-6.6) 10^3/uL Lymph # (Auto) 1.5 2.0 (1.5-3.5) 10^3/uL Gray # (Auto) 0.6 0.6 (0.0-1.0) 10^3/uL Eos # (Auto) 0.1 0.0 (0.0-0.7) 10^3/uL Baso # (Auto) 0.0 0.0 (0.0-0.1) 10^3/uL Absolute Nucleated RBC 0.00 0.00 x10^3/uL Nucleated RBC % 0.0 0.0 /100WBC Blood Type O POSITIVE Antibody Screen NEGATIVE - Other Results/Comments Other Results/Comments: A-S/P day 1, GBS positive not adequately treated due to fast delivery. P-Routine care. Discharge tomorrow.
[2021-04-11] MEDS: IBUPROFEN 600 MG TABLET PO SCH (07:54)
[2021-04-11] MEDS: ACETAMINOPHEN 500 MG TABLET PO SCH (07:55)
[2021-04-11 09:12] VITALS: BP 107/76
--- NOTE | 2021-04-11 09:27 | DISCHARGE SUMMARY ---
"Discharge Summary Admit Date: 04/09/21 Discharge Date: 04/11/21 Discharging Provider: Yadiel Flores DO Code Status: Attempt Resuscitation Condition at Discharge: Good Discharge Disposition: 01 Home, Self Care Discharge [facility]: [facility] - DIAGNOSES Admission Diagnoses: IUP 40 3/7, Active Labor. Discharge Diagnoses with Status of Each Condition: S/P without lacerations. - HPI History of Present Illness: 31 yo at 40 4/7 presented with Active labor. Patient had good care with Oanh Kyle CNM. - CONSULTS | PROCEDURES Procedures: Epidural - HOSPITAL COURSE Hospital Course: 31yo presented with Active labor. Patient had care with Oanh Kyle CNM. Patient progressed rapidly to 7cm and decided to have epidural anesthesia placed. Patient had epidural and was checked immediately after it was placed. Patient was complete and 2+ station. SROM occurred during that exam and light Meconium was present. Patient delivered a living female with weight of 8#0oz and APGARS 8/9. No lacerations or tears. Mother has had a routine course. - ALLERGIES Allergies/Adverse Reactions: Allergies Allergy/AdvReac Type Severity Reaction Status Date / Time No Known Drug Allergies Allergy Verified 04/09/21 18:00 - PHYSICAL EXAM AT DISCHARGE General Appearance: positive: No acute distress Cardiovascular: positive: Regular rate & rhythm. negative: No murmur, No gallop Abdomen: positive: Non-tender, Nml bowel sounds, Other (Fundus is firm and Below the umbilicus. Non-tender to palpation.) Skin: positive: Color nml Extremities: positive: No pedal edema. negative: Calf tenderness Neurologic/Psychiatric: positive: Oriented x3, Mood/affect nml Reflexes: Knee (L): 2+ - LABS Result Diagrams: 04/10/21 07:06 - QUALITY (Female Hip Fx Only) Was patient sent home on osteoporosis medication?: No - FOLLOW UP Follow Up: On 04/15/21 with Oanh Kyle CNM"
--- NOTE | 2021-04-11 09:35 | Discharge Plan ---
Discharge Plan Problem Reviewed?: No Disposition: Home, Self Care Condition: Good Diet: Regular Activity Restrictions: No Restrictions Shower Restrictions: No Driving Restrictions: No Weight Bearing: Full Weight Assessment: S/P without complications. No Smoking: If you smoke, Please STOP! Call for help. Follow-up with: Provider,Other [Primary Care Provider] - Oanh Kyle CNM, [place] [Provider Admit Priv/Credential] -
== END 2021-04-11 11:00 | disposition home or self-care (01) | DRG 807 ==
LOC: WFO 17:08 → FBP 17:12 → WFO 17:40 → FBP 17:41
PROVIDERS: ADMIT Obstetrics & Gynecology; ATTEND Obstetrics & Gynecology
PROC: 10E0XZZ Delivery of Products of Conception, External Approach (ICD-10-PCS; principal; 2021-04-09)
DX: O77.0 Labor and delivery complicated by meconium in amniotic fluid (principal); Z37.0 Single live birth; O99.824 Streptococcus B carrier state complicating childbirth; O69.81X0 Labor and delivery complicated by cord around neck, without compression, not applicable or unspecified; Z3A.40 40 weeks gestation of pregnancy
CPT/HCPCS: 36415; 85025; 86850; 86900; 86901; A9270; J7120; 99214